=== PATIENT | female | born 1995 | race Caucasian/White ===

== ENCOUNTER 2017-06-17 20:11 | Emergency (ER) | payer BC ==
[~2017-06-17] VITALS: Ht 152.4 cm; Wt 58.8 kg
[2017-06-17 20:15] VITALS: TEMP 36.8
[2017-06-17] MEDS ORDERED: KETOROLAC TROMETHAMINE 30 MG/ML VIAL IV STA (20:32)
[2017-06-17] MEDS ORDERED: ONDANSETRON INJ 2 MG/ML 2 ML VIAL IV STA (20:32)
--- NOTE | 2017-06-17 20:34 | EMERGENCY ROOM VISIT NOTE ---
History Report prepared by Sarabjit: Queta Padgett Under the Supervision of: Dr. Kamaljit Montana M.D. First contact with patient: 20:21 Chief Complaint: ABDOMINAL PAIN Stated Complaint: PAIN ON L SIDE ON HIP History of Present Illness The patient is a 22 year old white female with a past medical history of ovarian cyst who presents to the ED with a cc of left hip pain beginning last night. The patient states that she has a history of ovarian cysts and she is concerned that she may have another. 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 Positive dizziness, fatigue, and a heavy period. Negative vaginal discharge, recent travel, nausea, vomiting, fever, chills, trauma, urinary symptoms. She notes that she is on control and she started her period 3 days ago. Source of History: patient Onset: last night Position: other (left hip pain) Timing: constant Associated Symptoms: + fatigue, No fevers, No chills, No nausea, No vomiting , No urinary symptoms Note: Positive dizziness. Review of Systems See HPI for pertinent positives and negatives. A total of ten systems were reviewed and were otherwise negative. Past Medical & Surgical Medical Problems: (1) Ovarian cyst Family History No pertinent family history stated. Social History Smoking Status: Never Smoker Marital Status: single Housing Status: lives with roommate Occupation Status: [employer] Current/Historical Medications No Active Prescriptions or Reported Meds Allergies Coded Allergies: No Known Allergies (Unverified , 06/17/17) Physical Exam Vital Signs Date Time Temp Pulse Resp B/P (MAP) Pulse Ox O2 Delivery O2 Flow Rate FiO2 06/17/17 22:56 78 16 114/74 99 06/17/17 20:15 36.8 87 18 155/85 98 Room Air Physical Exam GENERAL: Awake, alert, well-appearing, NAD HENT: Normocephalic, atraumatic. EYES: Normal conjunctiva. Sclera non-icteric. NECK: Supple. No nuchal rigidity. FROM. RESPIRATORY: CTAB, no rhonchi, wheezing, crackles CARDIAC: RRR, no MRG ABDOMEN: Soft, NTND, BS+ MSK: No chest wall TTP, no LE edema, no CVA TTP, left lower pelvic pain, no pain over the lateral hip, no pain over anterior thigh or knee NEURO: GCS 15, CN 2-12 intact, moves all 4s on command SKIN: No rash or jaundice noted. 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 TECHNIQUE: Real-time grayscale and color and spectral Doppler ultrasound imaging of the pelvis was performed first using a transabdominal probe and subsequently transvaginal for better characterization. COMPARISON: None. FINDINGS: Uterus: Normal. Anteverted. The uterus measures 6.0 x 2.8 x 4.0 cm. Endometrial stripe measures 4 mm in thickness. Endometrium normal-appearing. Cervix contains trace endocervical fluid. Right adnexa: Right ovary normal. Right ovary measures 3.2 x 1.5 x 2.3 cm. Normal color Doppler flow and arterial and venous waveforms within the ovarian parenchyma. Left adnexa: Left ovary normal. Left ovary measures 3.4 x 1.3 x 1.8 cm. Normal color Doppler flow and arterial and venous waveforms within the ovarian parenchyma. Other: No free fluid. IMPRESSION: No evidence of ovarian torsion. No significant sonographic abnormality in the pelvis. Electronically signed by: Hardik Perdue M.D. 06/17/2017 10:16 PM Laboratory Results 06/17/17 21:09 Red Blood Count 4.91, Mean Corpuscular Volume 94.7, Mean Corpuscular Hemoglobin 32.6, Mean Corpuscular Hemoglobin Concent 34.4, Mean Platelet Volume 11.0, Neutrophils (%) (Auto) 40.7, Lymphocytes (%) (Auto) 48.5, Monocytes (%) (Auto) 9.6, Eosinophils (%) (Auto) 0.9, Basophils (%) (Auto) 0.2, Neutrophils # (Auto) 3.48, Lymphocytes # (Auto) 4.15, Monocytes # (Auto) 0.82, Eosinophils # (Auto) 0.08, Basophils # (Auto) 0.02 06/17/17 21:09 Test 06/17/17 00:00 06/17/17 21:08 06/17/17 21:09 Urine Color YELLOW Urine Appearance CLOUDY (CLEAR) Urine pH 7.0 (4.5-7.5) Urine Specific [place] 1.022 (1.000-1.030) Urine Protein NEG (NEG) Urine Glucose (UA) NEG (NEG) Urine Ketones NEG (NEG) Urine Occult Blood NEG (NEG) Urine Nitrite NEG (NEG) Urine Bilirubin NEG (NEG) Urine Urobilinogen NEG (NEG) Urine Leukocyte Esterase NEG (NEG) Urine WBC (Auto) 0 /hpf (0-5) Urine RBC (Auto) 0-4 /hpf (0-4) Urine Hyaline Casts (Auto) 1-5 /lpf (0-5) Urine Epithelial Cells (Auto) 10-20 /lpf (0-5) Urine Bacteria (Auto) NEG (NEG) Urine Test NEG (NEG) Prothrombin Time 10.9 SECONDS (9.0-12.0) Prothromb Time International Ratio 1.0 (0.9-1.1) Activated Partial Thromboplast Time 27.0 SECONDS (21.0-31.0) Partial Thromboplastin Ratio 1.0 White Blood Count 8.56 K/uL (4.8-10.8) Red Blood Count 4.91 M/uL (4.2-5.4) Hemoglobin 16.0 g/dL (12.0-16.0) Hematocrit 46.5 % (37-47) Mean Corpuscular Volume 94.7 fL (80-100) Mean Corpuscular Hemoglobin 32.6 pg (25-34) Mean Corpuscular Hemoglobin Concent 34.4 g/dl (32-36) Platelet Count 216 K/uL (130-400) Mean Platelet Volume 11.0 fL (7.4-10.4) Neutrophils (%) (Auto) 40.7 % Lymphocytes (%) (Auto) 48.5 % Monocytes (%) (Auto) 9.6 % Eosinophils (%) (Auto) 0.9 % Basophils (%) (Auto) 0.2 % Neutrophils # (Auto) 3.48 K/uL (1.4-6.5) Lymphocytes # (Auto) 4.15 K/uL (1.2-3.4) Monocytes # (Auto) 0.82 K/uL (0.11-0.59) Eosinophils # (Auto) 0.08 K/uL (0-0.5) Basophils # (Auto) 0.02 K/uL (0-0.2) RDW Standard Deviation 45.2 fL (36.4-46.3) RDW Coefficient of Variation 13.1 % (11.5-14.5) Immature Granulocyte % (Auto) 0.1 % Immature Granulocyte # (Auto) 0.01 K/uL (0.00-0.02) Anion Gap 8.0 mmol/L (3-11) Est Creatinine Clear Calc Drug Dose 92.7 ml/min Estimated GFR () 127.9 Estimated GFR (Non- 110.4 BUN/Creatinine Ratio 22.8 (10-20) Calcium Level 9.2 mg/dl (8.5-10.1) Total Bilirubin 0.2 mg/dl (0.2-1) Aspartate Amino Transf (AST/SGOT) 17 U/L (15-37) Alanine Aminotransferase (ALT/SGPT) 23 U/L (12-78) Alkaline Phosphatase 50 U/L (45-117) Total Protein 7.6 gm/dl (6.4-8.2) Albumin 4.0 gm/dl (3.4-5.0) Globulin 3.6 gm/dl (2.5-4.0) Albumin/Globulin Ratio 1.1 (0.9-2) Laboratory results reviewed by me Medications Administered Medications (Trade) Dose Ordered Sig/Lane Route Start Time Stop Time Status Last Admin Dose Admin Ondansetron HCl (Zofran Inj) 4 mg NOW STAT IV 06/17/17 20:32 06/17/17 20:33 DC 06/17/17 21:14 4 MG Ketorolac Tromethamine (Toradol Inj) 30 mg NOW STAT IV 06/17/17 20:32 06/17/17 20:33 DC 06/17/17 21:14 30 MG ED Course 1828: The patient was evaluated in room C2. A complete history and physical exam was performed. I reevaluated and updated the patient. I reevaluated the patient. Discussed results and discharge instructions: She verbalized understanding and agreement. The patient is ready for discharge. Medical Decision Differential diagnosis: Etiologies such as ectopic , dysfunction uterine bleeding, bleeding dyscrasia, trauma, infection, as well as others were entertained. Patient was seen and evaluated the bedside. Patient states that she had been complaining of some left-sided hip or lower pelvic pain that when ongoing for approximately 2 days. Patient states that she is currently on her menstrual. Patient states that she does not typically have as much cramping when she has her menstrual period. Patient denies any vaginal discharge. She denies any dysuria or hematuria. Patient denies any trauma does not take any blood thinning medications. Patient states that she did have a prior history of an ovarian cyst and that after discussion with her own CLINICAL EDUCATION ASSISTANT she was told to present to the emergency department for an ultrasound. On exam the patient was very well-appearing. Patient did not have any left lower extremity deficits. Patient's compartments were soft and the patient did not have any thigh or knee pain. Patient had more left lower pelvic pain. Patient did have blood work, urinalysis, UPT, and pelvic ultrasound were completed. Patient was also given symptomatically control. Patient's pain was mildly improved. Patient was able to ambulate without difficulty. Patient's blood work was fairly unremarkable. Patient did not have an elevated white blood cell count. Of note patient never complained of any presyncope or syncope even though she did complain of mild increased heaviness in her menstrual period. Patient had normal hemoglobin and platelet counts. Patient had no abnormalities in her coagulation studies. Patient had normal kidney function no electrolyte abnormalities and had normal LFTs and lipase. Patient's pelvic ultrasound was negative acute. No evidence of fibroids or cysts. Patient was informed of these findings as well as given a print out. Patient was told that if her CLINICAL EDUCATION ASSISTANT who would like the records that they would need to call the main hospital office or through the records department. Patient was told to continue take Motrin and Tylenol round-the- clock. Patient was also told that she may apply some moist heat or ice to the area. Patient was told to follow with her CLINICAL EDUCATION ASSISTANT. Patient was amenable to this plan of care. Patient was able to tolerate by mouth and inability without difficulty. Patient was given strict follow-up, discharge, and return precautions. All questions were answered. Patient was deemed suitable for outpatient follow-up at this time. Patient agreed with the plan of care and was safely discharged home. Medication Reconcilliation Current Medication List: was personally reviewed by me Blood Pressure Screening Patient's blood pressure: Elevated blood pressure Blood pressure disposition: Elevated BP felt to be situational Impression Primary Impression: Abdominal pain Scribe Attestation The scribe's documentation has been prepared under my direction and personally reviewed by me in its entirety. I confirm that the note above accurately reflects all work, treatment, procedures, and medical decision making performed by me. Departure Information Dispostion Home / Self-Care Prescriptions No Active Prescriptions or Reported Meds Referrals No Doctor, Assigned (PCP) Berta Luna D.O. [facility] Patient Instructions ED Bleeding Menstrual Heavy, ED Cramping Menstrual, ED Pelvic Pain [facility], [facility] Additional Instructions Please return to the emergency department if you have worsening or recurrent symptoms not amenable to at-home treatment. Please call for a follow-up appointment with her primary care physician. Please take your medications as prescribed. If you have other concerns and/or complaints please feel free to also call your primary care physician's office or return the ED for further evaluation, management, and treatment. You may take 600 mg Ibuprofen every 6 hours as needed for pain with food for no more than 2 consecutive days. You may take tylenol 1000 mg every 6 hours as needed for pain. You may take motrin and tylenol separately or at the same time. Take your medications as prescribed. You have been examined and treated today on an emergency basis only. This is not a substitute for, or an effort to provide, complete comprehensive medical care. It is impossible to recognize and treat all injuries or illnesses in a single emergency department visit. It is therefore important that you follow up closely with [facility], your PCP, and/or your specialist(s). Call as soon as possible for an appointment. Thank you for your time and consideration. I look forward to speaking with you again soon. Please don't hesitate to call us if you have any questions. Problem Qualifiers Primary Impression: Abdominal pain Abdominal location: left lower quadrant Qualified Codes: R10.32 - Left lower quadrant pain
[2017-06-17 21:18] VITALS: Ht 152.4 cm; Wt 58.8 kg
[2017-06-17 21:25] LABS: BASO % 0.2 %; BASO ABS # 0.02 K/uL (0-0.2); COMPLETE YES; EOS % 0.9 %; HEMATOCRIT 46.5 % (37-47); IG% 0.1 %; LYMPH % 48.5 %; LYMPH ABS # 4.15 K/uL (1.2-3.4); MEAN CELL VOLUME 94.7 fL (80-100); MEAN CORPUSCULAR HEMOGLOBIN 32.6 pg (25-34); MEAN CORPUSCULAR HGB CONC 34.4 g/dl (32-36); MONO % 9.6 %; NEUT % 40.7 %; PLATELET COUNT 216 K/uL (130-400); RED BLOOD COUNT 4.91 M/uL (4.2-5.4); WHITE BLOOD COUNT 8.56 K/uL (4.8-10.8)
[2017-06-17 21:31] LABS: URINE APPEARANCE CLOUDY (CLEAR); URINE BILIRUBIN NEG (NEG); URINE COLOR YELLOW; URINE NITRITE NEG (NEG); URINE SPECIFIC GRAVITY 1.022 (1.000-1.030); UROBILINOGEN NEG (NEG)
[2017-06-17 21:32] LABS: MANUAL MICROSCOPIC REQUIRED? NO; REVIEW REQ? NO
[2017-06-17 21:35] LABS: PROTHROMBIN TIME (PATIENT) 10.9 SECONDS (9.0-12.0)
[2017-06-17 21:40] LABS: BUN/CREATININE RATIO 22.8 (10-20); CALCIUM 9.2 mg/dl (8.5-10.1); CREATININE 0.77 mg/dl (0.60-1.20); POTASSIUM 3.5 mmol/L (3.5-5.1)
[2017-06-17 21:43] LABS: ALB/GLOB RATIO 1.1 (0.9-2)
--- NOTE | 2017-06-17 22:17 | DIAGNOSTIC IMAGING REPORT ---
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 TECHNIQUE: Real-time grayscale and color and spectral Doppler ultrasound imaging of the pelvis was performed first using a transabdominal probe and subsequently transvaginal for better characterization. COMPARISON: None. FINDINGS: Uterus: Normal. Anteverted. The uterus measures 6.0 x 2.8 x 4.0 cm. Endometrial stripe measures 4 mm in thickness. Endometrium normal-appearing. Cervix contains trace endocervical fluid. Right adnexa: Right ovary normal. Right ovary measures 3.2 x 1.5 x 2.3 cm. Normal color Doppler flow and arterial and venous waveforms within the ovarian parenchyma. Left adnexa: Left ovary normal. Left ovary measures 3.4 x 1.3 x 1.8 cm. Normal color Doppler flow and arterial and venous waveforms within the ovarian parenchyma. Other: No free fluid. IMPRESSION: No evidence of ovarian torsion. No significant sonographic abnormality in the pelvis. Electronically signed by: Hardik Perdue M.D. 06/17/2017 10:16 PM Dictated Date/Time: 06/17/2017 10:14 PM
--- NOTE | 2017-06-17 22:17 | DIAGNOSTIC IMAGING REPORT ---
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 TECHNIQUE: Real-time grayscale and color and spectral Doppler ultrasound imaging of the pelvis was performed first using a transabdominal probe and subsequently transvaginal for better characterization. COMPARISON: None. FINDINGS: Uterus: Normal. Anteverted. The uterus measures 6.0 x 2.8 x 4.0 cm. Endometrial stripe measures 4 mm in thickness. Endometrium normal-appearing. Cervix contains trace endocervical fluid. Right adnexa: Right ovary normal. Right ovary measures 3.2 x 1.5 x 2.3 cm. Normal color Doppler flow and arterial and venous waveforms within the ovarian parenchyma. Left adnexa: Left ovary normal. Left ovary measures 3.4 x 1.3 x 1.8 cm. Normal color Doppler flow and arterial and venous waveforms within the ovarian parenchyma. Other: No free fluid. IMPRESSION: No evidence of ovarian torsion. No significant sonographic abnormality in the pelvis. Electronically signed by: Hardik Perdue M.D. 06/17/2017 10:16 PM Dictated Date/Time: 06/17/2017 10:14 PM
[2017-06-17 22:56] VITALS: BP 114/74; PULSE 78; O2SAT 99
== END 2017-06-17 22:57 | disposition home or self-care (01) ==
LOC: C.EDB 20:14 → C.EDC 22:57
DX: R10.2 Pelvic and perineal pain (principal); Z79.3 Long term (current) use of hormonal contraceptives; Z87.42 Personal history of other diseases of the female genital tract